=== PATIENT | female | born 2005 | race Caucasian/White ===

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

== ENCOUNTER 2024-01-01 12:58 | Outpatient (CLI) | payer BC, SELFPAY ==
[2024-01-01 20:03] LABS: Chlamydia DNA Amplified* Not Detected (No Detected); GC DNA Amplified* Not Detected (No Detected)
== END 2024-01-01 12:59 | disposition home or self-care (01) ==
PROVIDERS: Visit Provider Physician Assistant
DX: R10.2 Pelvic and perineal pain (principal); R30.0 Dysuria
CPT/HCPCS: 80053; 87086; 87491; 87591

== ENCOUNTER 2024-02-21 11:24 | Outpatient (CLI) | payer BC, SELFPAY | END 2024-02-21 11:25 | disposition home or self-care (01) | LOC: NFLDREF 11:24 | PROVIDERS: Visit Provider Physician Assistant | DX: K59.00 Constipation, unspecified (principal) | CPT/HCPCS: 84443 ==

== ENCOUNTER 2024-03-02 23:09 | Emergency (ER) | payer BC, SELFPAY ==
[2024-03-02 23:13] VITALS: BP 133/82; PULSE 102; RESP 18; TEMP 37.4; O2SAT 97; BMI 26.2
--- NOTE | 2024-03-02 23:29 | ED_ITS ---
HPI - General Adult General Time Seen by Provider: 23:29 Date Seen: 03/02/24 Chief complaint: Constipation Stated complaint: Rectal pain Time Seen by Provider: 03/02/24 23:29 Source: patient and RN notes reviewed Mode of arrival: ambulatory Limitations: no limitations History of Present Illness HPI narrative: This 18-year-old female is coming in with complaint of rectal pain. She is feeling it into her pelvic area, into the groin. She states she has defecated today. She has been using MiraLax. She states she is having pain and it hurts. She did see general surgery Dr. Saldana on February 27, she has not picked up any the prescriptions that were sent in. She reviews with me that these are just Band-Aids and are not fixing her problem. She has been to physical therapy, she has been extensively evaluated in [facility]. She had CT imaging earlier this winter at an outside institution. There is a well delineated note from Krystal Grant 01/01/2024. She is here wanting the pain to go away, wanting to find out why she is having this. Reviewed with her that we are truly a step backwards from where she has been. She is had extensive evaluation beyond even what we can do in the ER. There is nothing acutely in her history that suggests that there is a change. She is not having any fevers, can defecate. She does states she is left with pain. Related Data Home Medications Medication Instructions Recorded Confirmed cetirizine 10 mg capsule (Zyrtec) 10 mg PO QDAY PRN 02/28/24 02/28/24 Previous Rx's Medication Instructions Recorded calcium polycarbophil 625 mg 1,250 mg (2 x 625 mg) PO BID #90 02/28/24 tablet (FiberCon) tabs lidocaine HCl 3 % topical cream 1 applic topical QID PRN pain 02/28/24 #28.3 grams cyclobenzaprine 10 mg tablet 10 mg PO TID PRN muscle spasm #12 03/03/24 tabs Allergies Allergy/AdvReac Type Severity Reaction Status Date / Time No Known Drug Allergies Allergy Verified 02/28/24 14:50 PFSH PFS Surgical History History of tonsillectomy ?Z90.89 - Acquired absence of other organs (ICD-10) Family History Grandmother Colon cancer Mother High cholesterol Grandfather Diabetes Social History Narrative: Currently between jobs. Nonsmoker. Occasional marijuana use. Rare alcohol use. Smoking Status: Never smoker Do you use any of these nicotine containing products: None Second hand tobacco smoke exposure: No How often do you have a drink containing alcohol: monthly or less How many standard drinks containing alcohol do you have on a typical day: 1 or 2 How often do you have six or more drinks on one occasion: Never AUDIT-C Alcohol total score: 1 Non-prescribed substance use: marijuana (any form) service: No Exam Const: Vital Signs, click to edit/add: Vital Signs - 24 hr 03/02/24 23:13 Temperature 99.4 F Pulse Rate [Left P ulse Oximeter] 102 H Respiratory Rate 18 Blood Pressure [Ri ght Upper Arm] 133/82 Pulse Oximetry 97 Oxygen Delivery Me thod Room Air Patient is alert, interactive, no apparent distress. CV regular rate and rhythm, no murmur. Abdomen is soft, nontender, nondistended, no organomegaly. Inspection shows normal intergluteal fold, anus appears normal, no hemorrhoidal tissue. Digital rectal exam done and normal anal tone, feel no masses, rectal vault is empty. She does seem to experience some mild pain with examination but in my opinion there was nothing significant as far as pain reaction. Nothing but to the lubricant on the gloved finger on withdrawal. Documenting provider has reviewed patient's vital signs: yes Course Course ED Course: We will try the rectal lidocaine with the uro jet, give her 30 mg IM Toradol. Do not want to do narcotics, this is an undefined more chronic pain appearing issue at this point. I have reviewed her history, have discussed this with her. I really do not have any testing that I can help her with to find an answer tonight. CT imaging and ultrasound of already been done. I do not think she requires any labs. She initially declined the lidocaine in the Toradol, wanting testing done. As we discuss this further, reviewed with her really all I do have for her is temporizing measures to try to help her with the pain. I most definitely cannot fix or define what is going on with her tonight. Thus, in the end she does want to try the lidocaine and the Toradol. Reevaluation(s) Time of Reevaluation #1: 00:18 Reevaluation #1: Patient states the Toradol in the rectal lidocaine maybe help some. She does states she still in a lot of pain. We did discuss muscle relaxant, she does not remember anybody giving her or trying her on this. Will give her dose of cyclobenzaprine 10 mg here. She is tearful, wants to know if there is a test that I can do to figure this out. I said really the only thing I have available is CT imaging and she is already had a CT of her abdomen pelvis at the beginning of this. She states that was a long time ago. It looks in her records like that was maybe mid to end November. I did review with her that I feel the radiation from doing a CT scan is not beneficial and most harmful to her. I certainly am not anticipating that this is going to give us any new information. She has also had pelvic ultrasounds. I have again reviewed with her the limitations of [facility], this is a small town facility. The testing that she may need to entertain is beyond what can be done in an emergency room. I highly encourage her to follow up in clinic, contact her primary and or general surgery tomorrow. 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 Vital Signs Vital signs: Initial Vital Signs Temperature 99.4 F 03/02/24 23:13 Temperature Source Temporal Artery Scan 03/02/24 23:13 Pulse Rate 102 H 03/02/24 23:13 Pulse Rhythm Regular 03/02/24 23:13 Respiratory Rate 18 03/02/24 23:13 Blood Pressure 133/82 03/02/24 23:13 Blood Pressure Mean 99 03/02/24 23:13 Blood Pressure Position Sitting 03/02/24 23:13 Pulse Oximetry 97 03/02/24 23:13 Oxygen Delivery Method Room Air 03/02/24 23:13 Vital Signs Temperature 99.4 F 03/02/24 23:13 Pulse Rate 102 H 03/02/24 23:13 Respiratory Rate 18 03/02/24 23:13 Blood Pressure 133/82 03/02/24 23:13 Pulse Oximetry 97 03/02/24 23:13 Oxygen Delivery Method Room Air 03/02/24 23:13 Temperature 99.4 F 03/02/24 23:13 Pulse Rate 102 H 03/02/24 23:13 Respiratory Rate 18 03/02/24 23:13 Blood Pressure 133/82 03/02/24 23:13 Pulse Oximetry 97 03/02/24 23:13 Oxygen Delivery Method Room Air 03/02/24 23:13 Medications Administered Medications: Generic Name Dose Route Start Last Admin Trade Name Freq PRN Reason Stop Dose Admin Ketorolac Tromethamine 30 mg 03/02/24 23:41 03/02/24 23:45 Ketorolac 30 Mg/Ml Inj IM 03/02/24 23:42 30 mg ONCE ONE Administration Lidocaine HCl 6 ml 03/02/24 23:41 03/02/24 23:54 Lidocaine Hcl 2 % Jelly (Top) Sterile TOPICAL 03/02/24 23:42 6 ml ONCE ONE Administration Discharge Plan Discharge Clinical Impression: Rectal pain Patient Disposition: Home, Self-Care Condition: Stable Instructions: Rectal Pain (ED) Prescriptions: New cyclobenzaprine 10 mg tablet 10 mg PO TID PRN (Reason: muscle spasm) Qty: 12 0RF No Action Zyrtec 10 mg capsule 10 mg PO QDAY PRN lidocaine HCl 3 % cream 1 applic topical QID PRN (Reason: pain) Qty: 28.3 0RF FiberCon 625 mg tablet 1,250 mg PO BID Qty: 90 0RF Follow Up/Referrals: Provider,Not a Local [Primary Care Provider] - Stand Alone Forms: MyHealth Info Instructions
[2024-03-02] MEDS: KETOROLAC 30 MG/ML inj IM (23:45)
--- OUTSIDE RECORDS SUMMARY | 2024-03-02 23:50 | XMS_ITS | Clinical Summary ---
Author Name Unknown Organization [facility] Address [place], [place] [address] Care Team Providers Care Workplace Relations Adviser Name Role Phone Pcp, No Primary Care Provider Unavailabl e Allergies Active Allergy Reactions Criticality Noted Date Comments Unlisted Allergen (Include Detail In Comments) Runny Nose,Fever 05/09/2012 MOLD, and seasonal allergies Medications Medication Sig Dispensed Refills Start Date End Date Status cetirizine (ZYRTEC) 10 mg tabletIndications: Allergic rhinitis, unspecified allergic rhinitis trigger, unspecified rhinitis seasonality TAKE ONE TABLET BY MOUTH EVERY DAY NEEDED 90 tablet 2 03/19/2017 Active sodium phosphates (Enema) enemaIndications:C onstipation, acute Insert 133 mL rectally one time if needed for Constipation for up to 1 dose. follow package directions 133 mL 5 01/18/2024 Active sennosides-docusat e (SENOKOT S) (8.6-50 mg) tabletIndications: Constipation, acute Take 2 Tablets by mouth two times daily. 180 Tablet 3 01/18/2024 Active Active Problems Problem Noted Date Diagnosed Date Abdominal pain 05/26/2022 Anxiety 05/26/2022 Constipation 05/26/2022 Reflux esophagitis 05/26/2022 Gastritis 05/26/2022 Tonsillar and adenoid hypertrophy 05/07/2012 Recurrent tonsillitis 05/07/2012 Allergic rhinitis, cause unspecified 01/08/2012 Cough 12/05/2011 Encounters Date Type Department Care Team Description 02/26/2024 2:45 PM CDT Office Visit [facility] [address] [place] [address] Michael Camacho DPM Consult (Bilateral Feet Pain) 02/26/2024 Travel 02/21/2024 Telephone [facility] [address] [place] [address] Michael Camacho DPM Questions (CALL BACK ) 01/18/2024 2:10 PM JEWELRY MANAGER Office Visit [facility] [address] [place] [address] Bozena Quintero Donna, DO Constipation (Last normal bowel movement was over 2 weeks ago); Foot Problem (Bilateral foot pain, flat footed) 01/18/2024 Travel 12/05/2023 Telephone [facility] [address] [place] [address] Louisa Castellon MD Results 12/04/2023 4:00 PM JEWELRY MANAGER - 12/04/2023 11:59 PM JEWELRY MANAGER Hospital Encounter [facility] [address] [place] [address] Louisa Castellon MD Abdominal pain, RLQ (right lower quadrant) 12/04/2023 1:50 PM JEWELRY MANAGER Office Visit [facility] [address] [place] [address] Louisa Castellon MD Hospital F/U (Lower right abdominal pain x1 month) 12/04/2023 Travel from Last 3 Months Immunizations Name Administration Dates Next Due AMB Influenza, IIV3 (Age >=3 years)(Flu Clinic Only) 09/11/2013,09/05/2012,09/08/2011,09/06,08/23/2009 AMB Influenza, IIV4 PF (=>6 mos Flulaval,Fluzone Fluarix)(Flu Clinic Only) 09/24/2019,09/11/2017,08/17/2014 DTaP 01/09/2007 [id number] (Pediarix) 08/14/2005,05/17/2005,0 02/03/2005 DTaP-IPV (Kinrix) 07/14/2010 HIB [...] Never Smokeless Tobacco: Never Tobacco Cessation:Counseling Given: No Comments:No exposure Alcohol Use Standard Drinks/Week Comments [...] Sign Reading Time Taken Comments Blood Pressure 119/77 02/26/2024 2:49 PM CDT Pulse 67 02/26/2024 2:49 PM CDT Temperature 36.8 ??C (98.3 ??F) 12/13/2020 8:55 AM CS T Respiratory Rate 22 04/11/2016 8:41 AM CDT Oxygen Saturation 96% 02/26/2024 2:49 PM CDT Inhaled Oxygen Concentration - - Weight 70.5 kg (155 lb 8 oz) 01/18/2024 2:14 PM JEWELRY MANAGER Height 164.6 cm (5' 4.8) 01/30/2023 12:48 PM CD T Body Mass Index - - Plan of Treatment Health Maintenance Due Date Last Done Comments HIV for age 15-65 2019 Depression screening for age 12+ 10/04/2021 10/04/2020, 07/07/2019, 01/31/2019, Additional history exists Well Child Check for age 3-20 10/04/2021 10/04/2020, 07/07/2019, 07/14/2010, Additional history exists Hepatitis C screening for age 18-79 2022 COVID-19 vaccine series ( season) 2023 BMI (ht and wt on same day) for age 18+ 01/31/2024 01/30/2023 Influenza for age 9-49 07/20/2024 , 08/26/2020, 09/24/2019, Additional history exists Chlamydia for age 16-24 12/04/2024 12/04/2023 Tetanus [...] TA AND TV Routine 12/04/2023 5:05 PM JEWELRY MANAGER Abdominal pain, RLQ (right lower quadrant) TRICHOMONAS, STUART, AND BACTERIAL VAGINOSIS BY COLTON Routine 12/04/2023 2:40 PM JEWELRY MANAGER Abdominal pain, RLQ (right lower quadrant) GC CHLAMYDIA TRACH PROBE Routine 12/04/2023 2:40 PM JEWELRY MANAGER Abdominal pain, RLQ (right lower quadrant) from Last 3 Months Results * US PELVIS COMPLETE TA AND TV (12/04/2023 5:05 PM JEWELRY MANAGER) Anatomical Region Laterality Modality Pelvis Ultrasound 12/05/2023 7:17 AM JEWELRY MANAGER Impressions 12/05/2023 7:17 AM JEWELRY MANAGER Unremarkable pelvic ultrasound. No significant change from the previous. Dictated by Yumiko Clarke MD @ 12/05/2023 7:17:39 AM (Electronically Signed) Narrative 12/05/2023 7:17 AM JEWELRY MANAGER For Patients: ??As a result of the [...] BACTERIAL VAGINOSIS BY COLTON (12/04/2023 2:40 PM JEWELRY MANAGER) STUART SPECIES Positive(A) Negative 12/05/19 24 12:09 PM JEWELRY MANAGER [facility] STUART GLABRATA Negative Negative 12/05/2023 12:09 PM JEWELRY MANAGER [facility] TRICHOMONAS VVA Negative Negative 4 12:09 PM JEWELRY MANAGER [facility] BACTERIAL VAGINOSIS Negative Negative 12/05/2023 12:09 PM JEWELRY MANAGER [facility] Other VAGINAL SWAB / Unknown Non-Blood / Unknown 12/04/2023 2:40 PM JEWELRY MANAGER 12/04/2023 3:23 PM JEWELRY MANAGER Louisa Castellon MD [facility] [address] [place] [address], [place] * GC & CHLAMYDIA DNA PCR [[id number]] (12/04/2023 2:40 PM JEWELRY MANAGER) CHLAMYDIA PROBE Negative 4 12:26 PM JEWELRY MANAGER [facility] N GONORRHOEAE PROBE Negative 12/05/2023 12:26 PM JEWELRY MANAGER [facility] Other VAGINAL SWAB / Unknown Non-Blood / Unknown 12/04/2023 2:40 PM JEWELRY MANAGER 12/04/2023 3:23 PM JEWELRY MANAGER Louisa Castellon MD MICROBIOLO GY [facility] [address] [place] [address], from Last 3 Months Advance Directives * Full Code (Latest Code Status on File) Date Activated Date Inactivated Comments 05/10/2012 9:34 AM 05/10/2012 4:46 PM Care Teams Workplace Relations Adviser Relationship Specialty Start Date End Date Pcp, No . PCP - General 12/04/23
[2024-03-02] MEDS: lidocaine HCL 2 % JELLY (TOP) STERILE 6 ML TOPICAL (23:54)
[2024-03-03] MEDS: CYCLOBENZAPRINE HCL 10 MG TABLET PO (00:26)
== END 2024-03-03 00:38 | disposition home or self-care (01) ==
PROVIDERS: Emergency Provider Family Medicine
DX: K62.89 Other specified diseases of anus and rectum (principal)
CPT/HCPCS: 96372; 99283; A9270; J1885

== ENCOUNTER 2024-03-19 13:30 | Outpatient (RCR) | payer BC, SELFPAY ==
--- NOTE | 2024-03-19 14:38 | PT.OPDNX ---
PT [facility] Daily Note PT [facility] Outpatient Daily Note Start: 01/22/24 10:56 Freq: Status: Active Protocol: Document 03/19/24 13:28 ARR (Rec: 03/19/24 14:37 ARR [id number]) E-signed By Louise Blanca DPT PT OP Daily Progress Note Visit Information Note Type Daily Note Visit Number [id number] Insurance Information Recert Due Date 06/17/24 Insurance Name Medicaid,Blue Cross/Blue Shield Insurance Information/Comments EVAL: 01/21 - 03/19/24 POC 1 x 12 RECERT 03/20 - 06/17/24 for 1 x 10 Medical Diagnosis R10.2 pelvic and perineal pain Treating Diagnosis R10.30 Lower abdominal pain, unspecified K59.00 Constipation, unspecified R10.2 pelvic and perineal pain Referring MD Krystal Grant PA-C ([facility]) Subjective Subjective -Has been going to the BR a lot more. Has had a lot of pain this week, not as intense . Pain more so in vaginal space more so right sided. Not having R LQ pain since last session. Some cramping in rectal area but not much overall compared to how symptoms used to be -Doing HEP -Has been getting meals in. Hasn't taken fiber pills at all -Will be going to the gym today, hasn't been as consistent with this -BM have been really consistent this week, at least going x1 in the AM consistently and sometimes in the PM too Home Exercise Home Exercise Comments OTHER: -PF Drops and check ins 01/21 -Bowel health 01/21 Access Code: [email or web address] URL: [email or web address] Date: 02/13/2024 Prepared by: Louise Blanca Exercises - Sidelying Open Book Thoracic Lumbar Rotation and Extension - 1-2 x daily - 5-7 x weekly - 6-8 reps - Sidelying Diaphragmatic Breathing - 1-2 x daily - 5-7 x weekly - 6-8 reps - 90 90 Switch Hip Exercise - 1 x daily - 5-7 x weekly - 4- 5 reps Objective Other/Pertinent Objective INTERNAL EXAMINATION TRANSRECTAL 03/12 -No visible hemorrhoid this -Tone and TTP bilat WA, IC, coccygeus INTERNAL EXAMINATION INTRAVAGINAL 01/21: -Sensation: intact to touch -Observation: WNL -Perineum: elevated (concave) -Cough: nil -Lifting contraction: nil -Bulge: bulge -Prolapse: anterior wall laxity 1 cm above level of hymen with bearing down Tenderness/pain to palpation/ tone: -Layer 1: ischiocavernosus / superficial transverse perineal bilat R>L -Layer 2: sphincter urethrovaginalis on R -Layer 3: puborectalis / pubococcygeus / iliococcygeus inc'd tone on R Strength ( R / C / L): -Power (MMT): 1 -Endurance: 2 -Reps: 1 -Fast twitch: 0 Other: -Breathing examination: dec?d posterior and lateral ribcage mvmt with inhalation -Coordination: with TA activation rejoiner with upper abs bearing down into abdominal wall and into pelvic floor -Palpation: inc'd tone and TTP throughout abdominal wall especially along course of colon EXTERNAL OBJECTIVE 01/30/24: -Movement screen: MS Flexion hands to floor good posterior femoral glide reduced TS/LS mobility, HS hypermobility, MS extension reduced TS mobility . MS rotation WNL -SLS: moderate pelvic drop on R side, mild on L side. Inc'd knee hyperextension -Posture: level IC, significant foot pronation bilaterally with navicular drop -Hip PROM: IR 40, ER 60 bilat -Strength: R glut medius 2+ R, 3- L Other Tests: -Breathing: dec?d posterior and lateral ribcage mvmt with inhalation Special tests: -Flexibility: + HF on R, + piriformis bilat, HS neg Functional Test Performed & Score PFQ: -Bladder -Bowel -Prolapse 06/02 -Sexual: Total:36 Patient Instructed in Risks/Benefits Yes Manual Therapy Techniques Manual Therapy Minutes (minutes) 40 Manual Therapy Techniques MT: indicated for improving joint mobility, reducing tissue irritability, and improving range of motion. Prone, transrectal: -Deep breathing for PFM relaxation -Deep breathing with gentle OP at mm belly of PC/WA -PF drops 5x(25% PFC focused on squeeze/lift then relaxation and opening. Relaxation with OP into WA/PC Taking 2-3 deep breaths) -PF drops 5x(25% PFC focused on squeeze/lift then relaxation and opening. Relaxation with OP into coccygeus Taking 2-3 deep breaths) -STM just lateral to coccyx bilaterally -Coccyx distraction 5 x 10-15 sec holds. Treatment focused on RIGHT side Externally: -Static pressure RIGHT side of PB with active mobilization from pt into APT/PPT,= -Ishiorectal fossa release with gentle traction of tissue inferiorly?on R side Self Care Management Training Self-Care Activity Minutes (minutes) 13 Self Care Management Training Goals for the week reviewed and established this date: ? Bowel routine - sitting on toilet no more than 10 min in the AM. ? Getting in at least 1-2 servings of fruit or vegetables per day ? -Exercises 5-7 days per week 1-2x/day ? Continue pelvic floor check in?s looking for gripping of upper abs/ribcage area, jaw clenching, sucking belly button in ? Consistency with fiber pills ? Try adding 1 tsp 1x/day of Magnesium calm New goal of increasing awareness of muscle firing patterns when at the gym to assess for excessive PFC vs TA or glut firing Treatment Minutes Timed Code Treatment Minutes 53 Total Treatment Time 53 Billing Units Manual Therapy Units 3 Self-Care Activity Units 1 Assessment/Impression Assessment/Impression Overall reduced TTP overall with rectal palpation of WA/PC . Persistent into area of coccyx but reduced after coccyx distraction. COntinued with MT techniques as noted above. Did trial vaginal external treatment of ischiorectal fossa. Pt is showing pain pattern into possible irritation of PN perineal and rectal branches - will further assess next session. Pt to continue with HEP and also to increase awareness of muscle firing patterns when at the gym and report next session. Plan of Care Physical Therapy Goals STG (within 6 weeks) 1)Patient will demonstrate ability to utilize ?belly big, belly hard technique? while properly lengthening PFM to allow improved ease of defecation without straining. - MET 5/1 2) Pt will report at least 40% improvement in symptoms since start of therapy for improved quality of life - PROGRESSING TOWARD 3) Pt will report no pelvic floor muscle tenderness during internal palpation to allow for improved bowel emptying. - PROGRESSING TOWARD, REDUCED BUT STILL PERSISTENT 4) Pt will report no pelvic soreness after having bowel movement - MET5/1 LTG (within 12 weeks) 1) Pt will report bristol Stool Scale is improved to Type 4 stool to allow for improved bowel emptying / ability to hold back stool 2) Pt will report ability to delay urination to avoid going just in case without flare of pain to demonstrate improved bladder filling 3) Pt will report at least 80% improvement in symptoms since start of therapy for improved quality of life 4) Pt will demonstrate proper coordination of motor recruitment patterns for PF then TA activation during dynamic UE/LE movements in all postures while maintaining diaphragmatic breathing pattern 5) Pt will be able to return to working out without pain flare. 6) Pt will demonstrate PFQ subscale score <25 for improved quality of life. Daily Plan of Care Comments HEP - consider adding bolstered child's pose, cat/ camels, adductor rockbacks, prone press ups, 1/2 kneeling HF stretching -Continue MT techniques - consider tissue mobilization using lacrosse balls into posterior PF Effectiveness of Rx. Retest for PN involvement, sensation, TTP etc due to R sided PFM pain. VISITS - WAITLIST Recertification Information Initial Certification Date 01/22/24 Recertification Start Date 03/19/24 Recertification Due Date 06/17/24 Reasons to Continue Skilled Therapy Pt had been seen for severe pelvic and perineal pain, lower abdominal pain, constipation for 5 visits from 01/22/24 to 03/19/24 during this episode of physical therapy. Focus of therapy on spine/hip mobility with focus on deep breathing for PF lengthening. Behavioral education for improving bowel habits and reducing constipation. Interventions including ther exercise, manual therapy, self -care, neuromuscular re- education. Pt at this time has not met all short/half-way goals and maximal therapeutic benefit has not yet been reached. STG progress indicated below. All LTG unmet at this time. Pt would benefit from extension of current plan of care with progress toward goals as noted below. Skilled therapy indicated to continue for 1x/ wk for an additional 10 visits . Due to scheduling pt not having an appt until end of March - is on cancel list. Provider Signature Shows Agreement With POC & Medical Necessity Physician Comment/Change Comment or Changes Physician NPI Number #
== END 2024-06-26 10:28 | disposition home or self-care (01) ==
PROVIDERS: Visit Provider Physician Assistant
DX: R10.2 Pelvic and perineal pain (principal); R10.30 Lower abdominal pain, unspecified; K59.00 Constipation, unspecified; Z51.89 Encounter for other specified aftercare
CPT/HCPCS: 97110; 97140; 97161; 97535

== ENCOUNTER 2024-05-13 05:16 | Emergency (ER) | payer BC, SELFPAY ==
[2024-05-13 05:21] VITALS: BP 128/82; PULSE 97; RESP 16; TEMP 38.6; O2SAT 98; BMI 25.2
--- NOTE | 2024-05-13 05:37 | ED_ITS ---
HPI - General Adult General Chief complaint: Abdominal Pain Stated complaint: Body aches, chills, cant sleep, dizzy Time Seen by Provider: 05/13/24 05:21 History of Present Illness HPI narrative: Pt c/o RLQ pain , nausea, chills, sore throat, body aches, and dizziness that started last Sunday. Pt also states, my pelvic muscles are really tight. When I pass gas I feel like I' m going to throw up. Pt states last period was two months ago but denies chance of . 18-year-old young woman presenting to the emergency department with concern of just feeling unwell. Over last 3 days increasing feeling of nausea and chills. No rash. She is been feeling a little lightheaded and maybe is though vision shifts briefly when she goes to stand up. She has not actually vomited. Does have a sore throat which she would attribute to allergies. Hurts particularly on the left side and into her ear. This is familiar with flare of allergies. She has also been having pain in low right pelvis. This is also familiar location of pain. Has had extensive evaluation without clear origin other than I believe pelvic floor dysfunction. Has been working with physical therapy for some time. Denies a history of ovarian cysts. Also struggles with constipation; did have 1 small bowel movement earlier today. Denies actual dysuria. No hematuria noted. Thought maybe she had sinus problems but it does not endorse any facial pain Related Data Home Medications ?Medication ?Instructions ?Recorded ?Confirmed cetirizine 10 mg capsule (Zyrtec) 10 mg PO QDAY PRN 02/28/24 05/13/24 Allergies Allergy/AdvReac Type Severity Reaction Status Date / Time mold Allergy Mild Hives Verified 05/13/24 05:27 Review of Systems Status of ROS: Reports: 6 or more systems reviewed and unremarkable except as noted in History and below PFSH PFS Surgical History History of tonsillectomy ?Z90.89 - Acquired absence of other organs (ICD-10) Family History Grandmother Colon cancer Mother High cholesterol Grandfather Diabetes Social History Narrative: Currently between jobs. Nonsmoker. Occasional marijuana use. Rare alcohol use. Smoking Status: Never smoker Do you use any of these nicotine containing products: None Second hand tobacco smoke exposure: No How often do you have a drink containing alcohol: monthly or less How many standard drinks containing alcohol do you have on a typical day: 1 or 2 How often do you have six or more drinks on one occasion: Never AUDIT-C Alcohol total score: 1 Non-prescribed substance use: marijuana (any form) service: No Exam Narrative: Exam Narrative: Pleasant. With good energy. Breathing easily. Does not sound particularly congested in the nasopharynx. She is without facial erythema tenderness or swelling. TMs bilaterally are clear. Neck is supple and with upper bilateral cervical lymphadenopathy. A good deal of posterior oropharyngeal cobblestoning Trachea is midline. There is no stridor. Lungs are clear. Heart with elevated rate in a regular rhythm. Generally skin is quite warm. No rash apparent. She is well-perfused and without lower extremity edema. Abdomen with present bowel sounds. Is soft without peritoneal signs. She is a little tender in the right adnexal area. Const: Vital Signs, click to edit/add: Vital Signs - 24 hr 05/13/24 05:21 05/13/24 05:46 05/13/24 06:02 Temperature 101.4 F H Pulse Rate 98 88 Pulse Rate [Pulse Oximeter] 97 Respiratory Rate 16 16 Blood Pressure 122/67 Blood Pressure [Le ft Upper Arm] 128/82 Pulse Oximetry 98 97 97 Oxygen Delivery Me thod Room Air Room Air Room Air 05/13/24 06:32 Temperature Pulse Rate 93 Pulse Rate [Pulse Oximeter] Respiratory Rate 14 Blood Pressure 119/68 Blood Pressure [Le ft Upper Arm] Pulse Oximetry 98 Oxygen Delivery Me thod Room Air Documenting provider has reviewed patient's vital signs: yes Course Vital Signs Vital signs: Initial Vital Signs Temperature 101.4 F H 05/13/24 05:21 Temperature Source Temporal Artery Scan 05/13/24 05:21 Pulse Rate 97 05/13/24 05:21 Respiratory Rate 16 05/13/24 05:21 Blood Pressure 128/82 05/13/24 05:21 Blood Pressure Mean 97 05/13/24 05:21 Blood Pressure Position Supine 05/13/24 05:21 Pulse Oximetry 98 05/13/24 05:21 Oxygen Delivery Method Room Air 05/13/24 05:21 Vital Signs Temperature 101.4 F H 05/13/24 05:21 Pulse Rate 97 05/13/24 05:21 Respiratory Rate 16 05/13/24 05:21 Blood Pressure 128/82 05/13/24 05:21 Pulse Oximetry 98 05/13/24 05:21 Oxygen Delivery Method Room Air 05/13/24 05:21 Temperature 101.4 F H 05/13/24 05:21 Pulse Rate 93 05/13/24 06:32 Respiratory Rate 14 05/13/24 06:32 Blood Pressure 119/68 05/13/24 06:32 Pulse Oximetry 98 05/13/24 06:32 Oxygen Delivery Method Room Air 05/13/24 06:32 Medications Administered Medications: Discontinued Medications Generic Name Dose Route Start Last Admin Trade Name Freq PRN Reason Stop Dose Admin Sodium Chloride 1,000 mls @ 1,000 mls/hr 05/13/24 05:46 05/13/24 07:07 0.9 % Sodium Chloride 1000 Ml IV 05/13/24 06:45 Infused .Q1H ONE Infusion Ibuprofen 800 mg 05/13/24 05:48 05/13/24 06:03 Ibuprofen 400 Mg Tablet PO 05/13/24 05:49 800 mg ONCE ONE Administration Ondansetron HCl 4 mg 05/13/24 05:46 05/13/24 06:03 Ondansetron 2 Mg/Ml Inj IVP 05/13/24 05:47 4 mg ONCE ONE Administration Medical Decision Making MDM Narrative Medical decision making narrative: Would seem to have some infectious cause amplifying underlying chronic complaints. Throat does not look particularly red but symptoms otherwise might be related to strep throat . Would screen for COVID influenza as well. Collect urinalysis checked for . I suppose could be ectopic. Ovarian cyst possible. Appendicitis I think is less likely. Otherwise viral illness nonspecific. I agree that she would likely benefit from some IV fluids. Will give antiemetic and ibuprofen for fever and discomfort. On reassessment overall is improved. Abdomen would appear to be less tender. White count is normal. Only CRP is elevated of uncertain significance. Will add a Monospot yet but feels well enough to go home at this point. Will need a work note. See patient discharge plan for further discussion Medical Records Medical records reviewed: Yes I reviewed the patient's medical records Lab Data Lab results reviewed: Yes I reviewed the patient's lab results Labs: Lab Results 05/13/24 05/13/24 05/13/24 Range/Units 05:35 05:50 05:55 WBC 7.59 (4.50-11.00) K/uL RBC 4.67 (4.00-5.20) m/uL Hgb 13.1 (12.0-16.0) gm/dL Hct 39.7 (33.0-51.0) % MCV 85 (80-100) fL MCH 28 (26-34) pg MCHC 33 (32-36) gm/dL RDW Coeff of Tony 12.1 (11.5-15.5) % Plt Count 200 (140-440) K/uL Neut % (Auto) 74.7 H (42.0-72.0) % Lymph % (Auto) 11.9 L (20-44) % Wheeler % (Auto) 11.5 H (0.0-11.0) % Eos % (Auto) 0.7 (0.0-7.0) % Baso % (Auto) 0.3 (0.0-3.0) % Neut # (Auto) 5.70 (1.7-7.0) K/uL Lymph # (Auto) 0.90 (0.90-2.90) K/uL Wheeler # (Auto) 0.90 (0.00-0.90) K/UL Eos # (Auto) 0.05 (0.00-0.50) K/uL Baso # (Auto) 0.02 (0.00-0.30) K/uL Abs Immat Gran (auto) 0.07 (0.00-0.30) K/uL Imm/Tot Granulo (auto) 0.9 % Sodium 136 (135-149) mmol/L Potassium 3.7 (3.6-5.1) mmol/L Chloride 103 (96-114) mmol/L Carbon Dioxide 29 (20-32) mmol/L Anion Gap 4 L (7-15) mEq/L BUN 11 (5-24) mg/dL Creatinine 0.7 (0.6-1.2) mg/dL Estimated Creat Clear 106.93 Estimated GFR 128 ml/min Glucose 107 (60-115) mg/dL Calcium 9.1 (8.7-10.8) mg/dL Magnesium 1.8 (1.5-2.6) mg/dL C-Reactive Protein 3.2 H (0.5-1.0) mg/dL Urine Color Yellow (Yellow) Urine Appearance Clear (Clear) Urine pH 6.0 (5.0-8.5) Ur Specific [place] 1.010 (1.000-1.030) Urine Protein Negative (Negative) Urine Glucose (UA) Negative (Negative) Urine Ketones Negative (Negative) Urine Blood Negative (Negative) Urine Nitrite Negative (Negative) Urine Bilirubin Negative (Negative) Urine Urobilinogen 0.2 (0.2-1.0) Ur Leukocyte Esterase Negative (Negative) Urine RBC 0-2 (0-2) Urine WBC 0-2 (0-5) Ur Squamous Epith Cells Few (None-Few) Urine Bacteria Few A (None) Urine HCG, Qual Negative (Negative) SARS-CoV-2 (PCR) Negative SARS-CoV-2 (Negative) Monoscreen Negative (Negative) Influenza Type A (PCR) Negative PCR FLU A (Negative) Influenza Type B (PCR) Negative PCR FLU B (Negative) RSV (PCR) Negative PCR RSV (Negative) Group A Strep DNA NOT DETECTED (Not Detectd) Lab Acknowledgement 05/13/24 Range/Units 07:30 WBC (4.50-11.00) K/uL RBC (4.00-5.20) m/uL Hgb (12.0-16.0) gm/dL Hct (33.0-51.0) % MCV (80-100) fL MCH (26-34) pg MCHC (32-36) gm/dL RDW Coeff of Tony (11.5-15.5) % Plt Count (140-440) K/uL Neut % (Auto) (42.0-72.0) % Lymph % (Auto) (20-44) % Wheeler % (Auto) (0.0-11.0) % Eos % (Auto) (0.0-7.0) % Baso % (Auto) (0.0-3.0) % Neut # (Auto) (1.7-7.0) K/uL Lymph # (Auto) (0.90-2.90) K/uL Wheeler # (Auto) (0.00-0.90) K/UL Eos # (Auto) (0.00-0.50) K/uL Baso # (Auto) (0.00-0.30) K/uL Abs Immat Gran (auto) (0.00-0.30) K/uL Imm/Tot Granulo (auto) % Sodium (135-149) mmol/L Potassium (3.6-5.1) mmol/L Chloride (96-114) mmol/L Carbon Dioxide (20-32) mmol/L Anion Gap (7-15) mEq/L BUN (5-24) mg/dL Creatinine (0.6-1.2) mg/dL Estimated Creat Clear Estimated GFR ml/min Glucose (60-115) mg/dL Calcium (8.7-10.8) mg/dL Magnesium (1.5-2.6) mg/dL C-Reactive Protein (0.5-1.0) mg/dL Urine Color (Yellow) Urine Appearance (Clear) Urine pH (5.0-8.5) Ur Specific [place] (1.000-1.030) Urine Protein (Negative) Urine Glucose (UA) (Negative) Urine Ketones (Negative) Urine Blood (Negative) Urine Nitrite (Negative) Urine Bilirubin (Negative) Urine Urobilinogen (0.2-1.0) Ur Leukocyte Esterase (Negative) Urine RBC (0-2) Urine WBC (0-5) Ur Squamous Epith Cells (None-Few) Urine Bacteria (None) Urine HCG, Qual (Negative) SARS-CoV-2 (PCR) (Negative) Monoscreen (Negative) Influenza Type A (PCR) (Negative) Influenza Type B (PCR) (Negative) RSV (PCR) (Negative) Group A Strep DNA (Not Detectd) Lab Acknowledgement Test Added Discharge Plan Discharge Clinical Impression: Fever, Myalgia Patient Disposition: Home, Self-Care Condition: Improved Additional Instructions: Focus on hydration. Consider truck sales representative diet for now. Return for rising fever, marked increase in abdominal pain, intractable vomiting. Will call you if Monospot is positive. Murielfran from [facility]. Prescriptions: No Action Zyrtec 10 mg capsule 10 mg PO QDAY PRN Follow Up/Referrals: Provider,Not a Local [Primary Care Provider] - Stand Alone Forms: TSO3th Info Instructions
[2024-05-13 05:46] VITALS: PULSE 98; O2SAT 97
--- OUTSIDE RECORDS SUMMARY | 2024-05-13 05:56 | XMS_ITS | Clinical Summary ---
Author Organization [facility] Address [place], [place] [address] Care Team Providers Care Filling Mixer Name Role Phone Pcp, No Primary Care [...] Encounters Date Type Department Care Team Description 03/10/2024 Telephone [facility] [address] [place] [address] Michael Camacho, DPM DME Supply (Custom orthotics) 02/26/2024 2:45 PM CDT Office Visit [facility] [address] [place] [address] Michael Camacho DPM Consult (Bilateral Feet Pain) 02/26/2024 Travel 02/21/2024 Telephone [facility] [address] [place] [address] Michael Camacho DPM Questions (CALL BACK ) from Last 3 Months Immunizations Name Administration Dates Next Due AMB Influenza, IIV3 (Age >=3 years)(Flu Clinic Only) 09/11/2013,09/05/2012,09/08/2011,09/06,08/23/2009 AMB Influenza, IIV4 PF (=>6 mos Flulaval,Fluzone Fluarix)(Flu Clinic Only) 09/24/2019,09/11/2017,08/17/2014 DTaP 01/09/2007 [id number] (Pediarix) 08/14/2005,05/17/2005,0 02/03/2005 DTaP-IPV (Kinrix) 07/14/2010 HIB [...] (155 lb 8 oz) 01/18/2024 2:14 PM LARD BLEACHER Height 164.6 cm (5' 4.8) 01/30/2023 12:48 [...] age 18-79 2022 COVID-19 vaccine series ( - 2022-24 season) 2023 BMI (ht and wt on [...] Procedure Name Priority Date/Time Associated Diagnosis Comments GC CHLAMYDIA TRACH PROBE Routine 12/04/2023 2:40 PM LARD BLEACHER Abdominal pain, RLQ (right lower quadrant) from Last 3 Months or Most Recently Relevant to Health Maintenance Results * GC & CHLAMYDIA DNA PCR [[id number]] (12/04/2023 2:40 PM LARD BLEACHER) CHLAMYDIA PROBE Negative 12:26 PM LARD BLEACHER [facility] N GONORRHOEAE PROBE Negative 12/05/2023 12:26 PM LARD BLEACHER [facility] Other VAGINAL SWAB / Unknown Non-Blood / Unknown 12/04/2023 2:40 PM LARD BLEACHER 12/04/2023 3:23 PM LARD BLEACHER Louisa Castellon MD MICROBIOLO GY [facility] [address] [place] [address], [place] from Last 3 Months or Most Recently Relevant to Health Maintenance Advance Directives * Full Code (Latest Code Status on File) Date Activated Date Inactivated Comments 05/10/2012 9:34 AM 05/10/2012 4:46 PM Care Teams Filling Mixer Relationship Specialty Start Date End Date Pcp, No . PCP - General 12/04/23
[2024-05-13 06:02] VITALS: BP 122/67; PULSE 88; RESP 16; O2SAT 97
[2024-05-13] MEDS: 0.9 % SODIUM CHLORIDE 1000 ml 1,000 ML IV (06:03)
[2024-05-13] MEDS: ONDANSETRON 2 MG/ML inj 4 MG IVP (06:03)
[2024-05-13] MEDS: IBUPROFEN 400 MG TABLET 800 MG PO (06:03)
[2024-05-13 06:17] LABS: Basophils Absolute Auto 0.02 K/uL (0.00-0.30); Basophils Percent Auto 0.3 % (0.0-3.0); Eosinophils Absolute Auto 0.05 K/uL (0.00-0.50); Eosinophils Percent Auto 0.7 % (0.0-7.0); Hematocrit 39.7 % (33.0-51.0); Hemoglobin* 13.1 gm/dL (12.0-16.0); Immature Granulocytes Abs Auto 0.07 K/uL (0.00-0.30); Immature Granulocytes Pct Auto 0.9 %; Lymphocytes Percent Auto 11.9 % (20-44); Mean Corpuscular HGB Conc 33 gm/dL (32-36); Mean Corpuscular Hemoglobin 28 pg (26-34); Mean Corpuscular Volume 85 fL (80-100); Monocytes Percent Auto 11.5 % (0.0-11.0); Neutrophils Percent Auto 74.7 % (42.0-72.0); Platelet Count* 200 K/uL (140-440); RDW Coefficient of Variation % 12.1 % (11.5-15.5); Red Blood Count 4.67 m/uL (4.00-5.20); White Blood Count* 7.59 K/uL (4.50-11.00)
[2024-05-13 06:18] LABS: Appearance Urine Clear (Clear); Bilirubin Urine Negative (Negative); Blood Urine Negative (Negative); Color Urine Yellow (Yellow); Glucose Urine Negative (Negative); Ketones Urine Negative (Negative); Leukocyte Esterase Urine Negative (Negative); Nitrite Urine Negative (Negative); Protein Urine Negative (Negative); Urobilinogen Urine 0.2 (0.2-1.0)
[2024-05-13 06:20] LABS: Ur HCG Qualitative* Negative (Negative)
[2024-05-13 06:24] LABS: Bacteria Urine Few; RBC Urine 0-2 (0-2); Squamous Epithelial Cell Urine Few (None-Few); WBC Urine 0-2 (0-5)
[2024-05-13 06:29] LABS: Chloride* 103 mmol/L (96-114); Potassium* 3.7 mmol/L (3.6-5.1); Sodium* 136 mmol/L (135-149)
[2024-05-13 06:32] VITALS: BP 119/68; PULSE 93; RESP 14; O2SAT 98
[2024-05-13 06:32] LABS: Creatinine* 0.7 mg/dL (0.6-1.2); Est. Creatinine Clearance* 106.93; Estimated Glomerular Filt Rate 128 ml/min; Magnesium* 1.8 mg/dL (1.5-2.6)
[2024-05-13 06:33] LABS: Anion Gap 4 mEq/L (7-15); Blood Urea Nitrogen* 11 mg/dL (5-24); Calcium* 9.1 mg/dL (8.7-10.8); Carbon Dioxide* 29 mmol/L (20-32); Glucose* 107 mg/dL (60-115)
[2024-05-13 06:36] LABS: C Reactive Protein* 3.2 mg/dL (0.5-1.0)
[2024-05-13 06:44] LABS: Strep A DNA Probe* NOT DETECTED (Not Detectd)
[2024-05-13 06:55] LABS: PCR FLU A Negative PCR FLU A (Negative); PCR FLU B Negative PCR FLU B (Negative); PCR RSV Negative PCR RSV (Negative); SARS PCR* Negative SARS-CoV-2 (Negative)
[2024-05-13 06:56] LABS: Slide Review Reflex No
[2024-05-13 08:00] LABS: Mono Screen* Negative (Negative)
== END 2024-05-13 07:50 | disposition home or self-care (01) ==
PROVIDERS: Emergency Provider Family Medicine
DX: R50.9 Fever, unspecified (principal); M79.10 Myalgia, unspecified site
CPT/HCPCS: 36415; 80048; 81001; 81025; 83735; 85025; 86140; 86308; 87086; 87631; 87651; 96374; 99283; 99284; A9270; J2405; J7030

== ENCOUNTER 2024-07-22 13:11 | Outpatient (CLI) | payer BC, SELFPAY ==
--- OUTSIDE RECORDS SUMMARY | 2024-07-24 07:50 | XMS_ITS | Clinical Summary ---
Author Organization [facility] Address [place], [place] [address] Care Team Providers Care Barrel Header Name Role Phone Pcp, No Primary Care [...] Encounters Date Type Department Care Team Description 06/24/2024 Telephone [facility] [address] [place] [address] Michael Camacho, DPM DME Supply (Custom Orthotics) from Last 3 Months Immunizations Name Administration Dates Next Due AMB Influenza, IIV3 (Age >=3 years)(Flu Clinic Only) 09/11/2013,09/05/2012,09/08/2011,09/06,08/23/2009 AMB Influenza, IIV4 PF (=>6 mos Flulaval,Fluzone Fluarix)(Flu Clinic Only) 09/24/2019,09/11/2017,08/17/2014 DTaP 01/09/2007 [id number] (Pediarix) 08/14/2005,05/17/2005,0 02/03/2005 DTaP-IPV (Kinrix) 07/14/2010 HIB PRP-OMP (PedvaxHIB) 01/09/2007,03/19,05/17/2005,02/03 HPV 9 (Gardasil 9) 07/07/2019,06/12/2017 Hepatitis A (Peds) 10/04/2020,07/07/2019 Influenza, IIV4 11/24/2021 Influenza, IIV4 (=>6mos) MDV 08/26/2020 Influenza,LAIV4 Live Intrana alyssa (Flumist) 09/21/2018 MENINGOCOCCAL VACCINE 2 VIAL [id number] (MENVEO) 11/24/2021,06/12/2017 MMR 07/14/2010,03/19/2006 Pneumococcal conj 7-Valent (Prevnar 7) 0 01/09/2007,08/14/2005,05/17/2005,02/03 [...] (155 lb 8 oz) 01/18/2024 2:14 PM FERMENTATION SCIENTIST Height 164.6 cm (5' 4.8) 01/30/2023 12:48 PM CD T Body Mass Index - - Plan of Treatment Health Maintenance Due Date Last Done Comments HIV for age 15-65 2019 Depression screening for age 12+ 10/04/2021 10/04/2020, 07/07/2019, 01/31/2019, Additional history exists Well Child Check for age 3-20 10/04/2021 10/04/2020, 07/07/2019, 07/14/2010, Additional history exists Hepatitis C screening for age 18-79 2022 BMI (ht and wt on same day) for age 18+ 01/31/2024 01/30/2023 COVID-19 vaccine series ( season) 2024 Influenza for age 9-49 07/20/2024 2, 08/26/2020, 09/24/2019, Additional history exists Chlamydia for [...] CHLAMYDIA TRACH PROBE Routine 12/04/2023 2:40 PM FERMENTATION SCIENTIST Abdominal pain, RLQ (right lower quadrant) from Last 3 Months or Most Recently Relevant to Health Maintenance Results * GC & CHLAMYDIA DNA PCR [[id number]] (12/04/2023 2:40 PM FERMENTATION SCIENTIST) CHLAMYDIA PROBE Negative 12:26 PM FERMENTATION SCIENTIST [facility] N GONORRHOEAE PROBE Negative 12/05/2023 12:26 PM FERMENTATION SCIENTIST [facility] Other VAGINAL SWAB / Unknown Non-Blood / Unknown 12/04/2023 2:40 PM FERMENTATION SCIENTIST 12/04/2023 3:23 PM FERMENTATION SCIENTIST Louisa Castellon MD MICROBIOLO GY [facility] [address] [address], from Last 3 Months or Most Recently Relevant to Health Maintenance Advance Directives * Full Code (Latest Code Status on File) Date Activated Date Inactivated Comments 05/10/2012 9:34 AM 05/10/2012 4:46 PM Care Teams Barrel Header Relationship Specialty Start Date End Date Pcp, No . PCP - General 12/04/23
== END 2024-07-22 13:12 | disposition home or self-care (01) ==
LOC: NFLDREF 07-24 07:48
PROVIDERS: Visit Provider Nurse Practitioner Family
DX: R82.90 Unspecified abnormal findings in urine (principal)
CPT/HCPCS: 87086